=== PATIENT | male | born 1950 | race Caucasian/White ===

== ENCOUNTER 2020-06-05 06:20 | Day surgery (SDC) | payer MEDICARE, BC, OTHER ==
[2020-06-05] MEDS ORDERED: Sodium Chloride 0.9% 1,000 ML IV SCH (07:00)
[2020-06-05] MEDS ORDERED: Midazolam 1 MG/ML 2 ML SDV ONE (07:23)
[2020-06-05] MEDS ORDERED: Propofol 200 MG/20 ML SDV ONE (07:23)
[2020-06-05] MEDS ORDERED: fentaNYL 100 MCG/2 ML SDV ONE (07:23)
--- NOTE | 2020-06-05 10:26 | OR ---
DATE OF PROCEDURE: 06/05/2020 SURGEON: Quirino Castro MD PROCEDURE: Colonoscopy. FINDINGS: 1. Diverticulosis, mild, mostly limited to sigmoid colon. 2. External hemorrhoid, nonthrombosed. 3. Sigmoid colon polyp, approximately 8 mm, completely removed using hot snare wire device. COMPLICATIONS: None. [employer]: None. ANESTHESIA: MAC. PREOPERATIVE DIAGNOSIS: Screening colonoscopy. POSTOPERATIVE DIAGNOSIS: Screening colonoscopy. RISKS: Risks, benefits, alternatives, and limitations including, but not limited to infection, bleeding, perforation, false positives, and false negatives were explained to the patient who wished to proceed. PROCEDURE IN DETAIL: The patient was placed in left lateral decubitus position. Digital rectal exam was performed without abnormality except for external hemorrhoids, nonthrombosed and small. Scope was introduced and advanced atraumatically to the ileocecal valve. A photo was taken of this. Scope was brought back to the ascending, transverse, descending colon, and retroflexed. No evidence of old or new blood. No masses. No evidence of colitis. The diverticulosis was described as mild, limited to sigmoid colon without evidence of diverticulitis or bleeding. The prep was acceptable, approximately 90% of the luminal surface could be seen. Greater than 8 minutes was spent removing the scope. The patient tolerated the procedure well. Quirino Castro MD /[id number]
== END 2020-06-05 09:17 | disposition home or self-care (01) ==
LOC: JP.SDS 06:20
PROVIDERS: ATTEND Surgery
DX: Z12.11 Encounter for screening for malignant neoplasm of colon (principal); D12.5 Benign neoplasm of sigmoid colon; K57.30 Diverticulosis of large intestine without perforation or abscess without bleeding; K64.4 Residual hemorrhoidal skin tags; I10 Essential (primary) hypertension; E78.5 Hyperlipidemia, unspecified
CPT/HCPCS: J2250; J2704; J3010; J7030